=== PATIENT | male | born 1955 | race Caucasian/White ===

== ENCOUNTER 2025-04-26 10:56 | Outpatient (CLI) | payer MEDICARE, BC, SELFPAY ==
--- OUTSIDE RECORDS SUMMARY | 2025-03-06 09:00 | XMS_ITS | Encounter Summary ---
Author Organization [facility] Address [address] [place] [address] Care Team Providers Care Road Freight Conductor Name Role Phone Yelena Michael MD Primary Care Provider Reason for Visit * Reason Comments Yearly Medicare Exam Encounter Details Date Type Department Care Team (Late st Contact Info) Description 03/06/2025 9:00 AM CDT Office Visit [facility] [address] [place] [address] Natalia Lee PA [address] [place] [address] Routine general medical examination at a health care facility (Primary Dx); Prediabetes; Other hyperlipidemia; Hx of CABG; ASHD (arteriosclerotic heart disease); Essential hypertension Social History Tobacco Use Types Packs/Day Years Used Date Smoking Tobacco: Never Smokeless Tobacco: Never Alcohol Use Standard Drinks/Week Comments Yes 2 (1 standard drink = 0.6 oz pur e alcohol) Food Insecurity Answer Date Recorded Do you find you are eating l ess than you should because you can t pay for food? No 02/20/2025 Transportation Needs Answer Date Record ed Have you gone without health care because you didn t have a way to get there? Or worry about transportation for future doctor visits, metal pickling equipment operator medication, etc.? No 2024 Housing Stability Answer Date Recorded Do you worry you won t have a steady place to sleep or struggle to pay rent or mortgage? No 02/20/2025 Utility Needs Answer Date Recorded Do you have difficulty payin g for utility costs (electric, water or gas bills)? No 02/20/2025 Medication Needs Answer Date Recorded Have you skipped taking medi cation due to cost or worry you can t afford new medications? No 02/20/2025 Feeling Safe Answer Date Recorded Are you in a relationship wi th someone who hurts you emotionally and/or physically? No 02/21/2025 Sex and Gender Information Value Date Recorded Sex Assigned at Male 04/17/2023 9:26 AM PERMANENT MOLD SUPERVISOR Legal Sex Male 1:26 PM PERMANENT MOLD SUPERVISOR Gender Identity Not on file Sexual Orientation Straight 04/17/2023 9: 26 AM PERMANENT MOLD SUPERVISOR documented as of this encounter Last Filed Vital Signs Vital Sign Reading Time Taken Comments Blood Pressure 134/68 03/06/2025 8:48 AM CDT Pulse 71 03/06/2025 8:48 AM CDT Temperature 36.4 C (97.6 F) 03/06/2025 8:48 AM CDT Respiratory Rate 18 03/06/2025 8:48 AM CDT Oxygen Saturation 95% 03/06/2025 8:48 AM CDT Inhaled Oxygen Concentration - - Weight 101.8 kg (224 lb 6.4 oz) 03/06/2025 8:48 AM CDT Height 180.3 cm (5' 11 ) 03/06/2025 8:48 AM CDT Body Mass Index 31.3 03/06/2025 8:48 AM CDT documented in this encounter Progress Notes * Natalia Lee PA - 03/06/2025 8:56 AM CDT Cory Davis is a 70 y.o. male here today for his Medicare Annual Wellness Visit. MEDICARE WELLNESS VISIT HEALTH RISK ASSESSMENT Completed by and reviewed with patient/caregiver. See Annual Wellness Visit HRA Flowsheet In general, how would you rate your health?: Very Good (03/06/25851) Are you basically satisfied with your life? : Yes (03/06/25851) MEDICAL RECORD REVIEWED AND UPDATED, INCLUDING: Demographics Current providers and suppliers: Patient Care Team: Yelena Michael MD as PCP - General (Internal Medicine) Shyanne Hutton PA as PCP - Primary Care APP1 (Physician Medical Laboratory Scientist) Hove, Jasmine Kellie, ANP as PCP - Primary Care APP2 (NURSE PRACTITIONER) Natalia Lee PA as PCP - Primary Care APP3 (Physician Medical Laboratory Scientist) Past Medical and Surgical History Family History Social History Allergies CURRENT MEDICATIONS REVIEWED AND RECONCILED tamsulosin Take 1 Capsule (0.4 mg) by mouth daily. rosuvastatin Take 1 Tablet (20 mg) by mouth daily. cholecalciferol (vitamin D3) Take 25 mcg by mouth. amLODIPine Take 1 Tablet (10 mg) by mouth daily. CYANOCOBALAMIN, VITAMIN B-12, ORAL Take by mouth 1 time daily as needed. GUMMIES OXcarbazepine Take 1 Tablet (300 mg) by mouth 2 times daily. fluticasone propionate SHAKE LIQUID AND USE 2 SPRAYS IN EACH NOSTRIL DAILY AT BEDTIME azelastine use 2 sprays in each nostril twice daily coenzyme Q10 Take 10 mg by mouth daily. multivitamin Take 1 Tablet by mouth daily. nitroglycerin Place 1 Tablet (0.4 mg) under tongue every 5 minutes as needed for Chest Pain. aspirin Take 81 mg by mouth daily. In general, how often do you forget or decide not to take one or more of your medications?: Seldom (03/06/25851) EXAMINATION(MA may complete) BP 134/68 (BP Location: Left arm, Patient Position (BP): Sitting, BP Cuff Size: Large Adult) Pulse 71 Temp 97.6 ??F (36.4 ??C) (Temporal) Resp 18 Ht 5' 11 (1.803 m) Wt 101.8 kg (224 lb 6.4oz) SpO2 95% BMI 31.30 kg/m?? Visual Acuity: Hearing: Have you been told by others you turn up your TV volume too high or that you have problems hearing?: Yes (03/06/25851) FUNCTIONAL ABILITY, FRAILTY AND SAFETY Have you fallen one or more times in the past year?: No (03/06/25851) Patient denies needing help with any ADL's. Do you currently use any medical equipment, such as a cane, walker, wheelchair, or oxygen tank?: No(03/06/25851) SAFETY AND PHYSICAL ACTIVITY Do you fasten your seat belt when you are in the car?: Yes (03/06/25851) Do you feel safe at home?: Yes (03/06/25851) How many days a week do you do at least 10 - 15 minutes of some type of exercise or physical activity?: 2 - 3 days - education automatically filed to AVS (03/06/25851) RISK ASSESSMENT (QM) Depression Screen Positive: PHQ-2 score >= 3 or PHQ-9 score >= 9 PHQ-2 Total: 0 (03/06/2025 8:52 AM) PHQ-9 Total: 2 (03/06/2025 8:52 AM) DEPRESSION PLAN OF CARE His depression screen was negative. (PHQ2 <3, PHQ9 <10, [place] <11) How often do you feel angry? : Never (03/06/25851) How often do you feel lonely?: Sometimes (03/06/25851) Any changes or new problems with your mental or emotional health, such as stress or anxiety?: Yes (03/06/25851) Management options discussed: N/A Opioid Use Current Opioids: none on current medication list Cognitive Impairment Cognitive ability observed and assessed throughout the exam. Structured assessment: not indicated based on this assessment. . PREVENTIVE CARE GUIDELINES Written Screening Schedule for the next 5-10 years developed and provided to patient. Preventive Care Recommendations for AVERAGE Risk Adult Males > 65yo Measure USPSTF Recommendation PSA testing Men 55-69: individual decision based on review of potential benefits and harms. Men >70 not recommended Colon Cancer Screening Colonoscopy every 10 yrs or Fecal Occult Blood testing yearly ages 45-75 Abdominal Aortic Aneurysm Men 65 -75 who have ever smoked. Lung Cancer Screening Annual low-dose CT, adults 50 - 80 w/ >20 pack-year smoking hx who currently smoke or have quit w/in 15 yrs (*Medicare will not cover for >77 yo) Lipid Screening Identification of dyslipidemia and calculation of 10-year CVD event risk requires universal lipid screening in adults ages 40 - 75 Pre-diabetes/Diabetes Screening Adults 35-70 who are overweight or obese Hepatitis C Screening Adults 18-79 Immunizations COVID-19 Influenza Pneumococcal RSV Tdap/Td Zoster (Shingles) ADVANCE CARE PLANNING Do you have an Advance Directive (Living Will)?: Yes (03/06/25851) Primary Emergency Contact: DASHA RIBERA, Relation: Cousin Is the person(s) listed above who you would want to be your trusted decision maker? Yes RISK FACTORS AND CONDITIONS FOR WHICH INTERVENTIONS ARE RECOMMENDED AND/OR UNDERWAY Are you currently on any kind of special diet? : Yes (03/06/25851) Do you have problems with your teeth or dentures?: Yes (03/06/25851) During the past 4 weeks, would you say you have had...: Very mild pain (03/06/25851) Do you have any concerns about your sexual health?: No (03/06/25851) No new issues identified EDUCATION/COUNSELING/REFERRAL(S) None indicated Orders Placed This Encounter FOLLOW UP YEARLY MEDICARE EXAM Mr. Davis voiced understanding and agreement with the treatment plan. All questions were answered. Wjoiu-Lvurd-Symgcsv provided to patient. ACUTE AND/OR CHRONIC ISSUES REQUIRING EVALUATION AND MANAGEMENT OUTSIDE THE WELLNESS VISIT (Provider only) Chief Complaint Patient presents with Yearly Medicare Exam HPI Patient is here for his annual wellness visit. His past medical history of hyperlipidemia, prediabetes, coronary artery disease, history of CABG. In general he has been doing well He did have to go to the emergency room on 02/20/2025 after developing very odd symptoms such as feeling like he was from his body. Lab work was unremarkable. Drug screen was presumptively positive for cannabinoids. After the fact he figured out he erroneously took a THC gummy that a ex friend had put in a different package. He saw neurology last year for an episode of altered consciousness. There was concern for complex partial seizures. He is on oxcarbazepine. He does admit he does not take it exactly as prescribed buthas not had any other episodes of concern. He does have some trouble with urinary frequency especially at night. This is helped by Flomax. Still sometimes has 1 episode of nocturia Review of Systems Constitutional: Negative for malaise/fatigue. HENT: Negative for congestion. Respiratory: Negative for cough and shortness of breath. Cardiovascular: Negative for chest pain and palpitations. Gastrointestinal: Negative for constipation, diarrhea, nausea and vomiting. Genitourinary: Negative for dysuria and hematuria. Skin: Negative for rash. Neurological: Negative for dizziness and headaches. Psychiatric/Behavioral: Negative for depression. The patient is not nervous/anxious. Objective Vitals: 03/06/25847 BP: 134/68 Pulse: 71 Resp: 18 Temp: 97.6 ??F (36.4 ??C) SpO2: 95% Physical Exam Constitutional: Appearance: Normal appearance. HENT: Head: Normocephalic and atraumatic. Right Ear: Tympanic membrane normal. Left Ear: Tympanic membrane normal. Nose: Nose normal. Mouth/Throat: Mouth: Mucous membranes are moist. Pharynx: Oropharynx is clear. Eyes: Extraocular Movements: Extraocular movements intact. Conjunctiva/sclera: Conjunctivae normal. Pupils: Pupils are equal, round, and reactive to light. Neck: Vascular: No carotid bruit. Cardiovascular: Rate and Rhythm: Normal rate and regular rhythm. Pulses: Normal pulses. Heart sounds: Normal heart sounds. Pulmonary: Effort: Pulmonary effort is normal. Breath sounds: Normal breath sounds. Abdominal: General: Bowel sounds are normal. Palpations: Abdomen is soft. Musculoskeletal: General: Normal range of motion. Cervical back: Normal range of motion and neck supple. Right lower leg: No edema. Left lower leg: No edema. Skin: General: Skin is warm and dry. Neurological: General: No focal deficit present. Mental Status: He is alert and oriented to person, place, and time. Psychiatric: Mood and Affect: Mood normal. Behavior: Behavior normal. Thought Content: Thought content normal. Current Outpatient Medications Medication Instructions amLODIPine (NORVASC) 10 mg, Oral, DAILY aspirin (ECOTRIN EC) 81 mg, DAILY azelastine (ASTELIN) 137 mcg/actuation nasal spray use 2 sprays in each nostril twice daily cholecalciferol (vitamin D3) 25 mcg coenzyme Q10 10 mg, DAILY CYANOCOBALAMIN, VITAMIN B-12, ORAL DAILY PRN fluticasone propionate (FLONASE) 50 mcg/spray Taylor, Suspension nasal inhaler SHAKE LIQUID AND USE 2 SPRAYS IN EACH NOSTRIL DAILY AT BEDTIME multivitamin (DAILY-BLANCO) tablet 1 Tablet, DAILY nitroglycerin (NITROSTAT) 0.4 mg, Sublingual, EVERY 5 MINUTES PRN OXcarbazepine (TRILEPTAL) 300 mg, Oral, TWO TIMES DAILY rosuvastatin (CRESTOR) 20 mg, Oral, DAILY tamsulosin (FLOMAX) 0.4 mg, Oral, DAILY A/P ICD-10-CM ICD-9-CM 1. Routine general medical examination at [facility] facility Z00.00 V70.0 2. Prediabetes R73.03 790.29 3. Other hyperlipidemia E78.49 272.4 4. Hx of CABG Z95.1 V45.81 5. ASHD (arteriosclerotic heart disease) I25.10 414.00 6. Essential hypertension I10 401.9 Chronic medical conditions are well-controlled with current therapy. Reviewed blood work that he has had for this year. He has had CBC, CMP, TSH, hemoglobin A1c, PSA. He has not had a lipid panel but he does continue to take Crestor. We deferred doing any additional lab work for this year and he will continue his cholesterol medication He is up-to-date on colonoscopy He received his influenza vaccine this year from [facility] Follow-up annually and as needed Patient Instructions Preventive Care Recommendations for AVERAGE Risk Adult Males > 65yo Measure USPSTF Recommendation PSA testing Men 55-69: individual decision based on review of potential benefits and harms. Men >70 not recommended Colon Cancer Screening Colonoscopy every 10 yrs or Fecal Occult Blood testing yearly ages 45-75 Abdominal Aortic Aneurysm Men 65 -75 who have ever smoked. Lung Cancer Screening Annual low-dose CT, adults 50 - 80 w/ >20 pack-year smoking hx who currently smoke or have quit w/in 15 yrs (*Medicare will not cover for >77 yo) Lipid Screening Identification of dyslipidemia and calculation of 10-year CVD event risk requires universal lipid screening in adults ages 40 - 75 Pre-diabetes/Diabetes Screening Adults 35-70 who are overweight or obese Hepatitis C Screening Adults 18-79 Immunizations COVID-19 Influenza Pneumococcal RSV Tdap/Td Zoster (Shingles) KIMI Boothe Portions of this document were created through the use of [employer] lab instructor software. Effort has been made to ensure accuracy of the bun machine operator. Any obvious errors or omissions should be clarified with the author of the document. documented in this encounter Miscellaneous Notes * Patient Instructions - Adri Morton - 03/06/2025 8:56 AM CDT Preventive Care Recommendations for AVERAGE Risk Adult Males > 65yo Measure USPSTF Recommendation PSA testing Men 55-69: individual decision based on review of potential benefits and harms. Men >70 not recommended Colon Cancer Screening Colonoscopy every 10 yrs or Fecal Occult Blood testing yearly ages 45-75 Abdominal Aortic Aneurysm Men 65 -75 who have ever smoked. Lung Cancer Screening Annual low-dose CT, adults 50 - 80 w/ >20 pack-year smoking hx who currently smoke or have quit w/in 15 yrs (*Medicare will not cover for >77 yo) Lipid Screening Identification of dyslipidemia and calculation of 10-year CVD event risk requires universal lipid screening in adults ages 40 - 75 Pre-diabetes/Diabetes Screening Adults 35-70 who are overweight or obese Hepatitis C Screening Adults 18-79 Immunizations COVID-19 Influenza Pneumococcal RSV Tdap/Td Zoster (Shingles) documented in this encounter Plan of Treatment Upcoming Encounters Date Type Department Care Team (Late st Contact Info) Description 05/17/2025 8:45 AM PERMANENT MOLD SUPERVISOR Appointment [facility] [address] [place] [address] Jasmine Franco, [facility] [address] [place] [address] 08/08/2025 11:30 AM CDT Office Visit [facility] [address] [facility] [address] [facility] [address] [place] [address] Manuel Nieves MD [address] [facility] [address] [facility] [address] [place] [address] 08/29/2025 10:45 AM CDT Office Visit [facility] [place] [address] [place] [address] Diane Ramírez MD [address] [place] [address] 03/06/2026 9:00 AM CDT Office Visit [facility] [address] [facility] [address] [place] [address] Yelena Michael MD [address] [place] [address] documented as of this encounter Visit Diagnoses Diagnosis Routine general medical examination at a health care facility- Primary Prediabetes Other abnormal glucose Other hyperlipidemia Hx of CABG Postsurgical aortocoronary bypass status ASHD (arteriosclerotic heart disease) Coronary atherosclerosis of unspecified type of vessel, inaja or graft Essential hypertension Unspecified essential hypertension documented in this encounter Care Teams Road Freight Conductor Relationship Specialty Start Date End Date Yelena Michael MD PCP - General Internal Medicine 03/29/22 documented as of this encounter
[2025-04-26 14:32] LABS: Coronavirus 19, PCR Not Detected (NotDetected); Influenza A, PCR Not Detected (NotDetected); Influenza B, PCR Not Detected (NotDetected)
--- OUTSIDE RECORDS SUMMARY | 2025-04-27 09:51 | XMS_ITS | Clinical Summary ---
Author Organization [facility] Address [address] [facility] [address] [place] [address] Phone Care Team Providers Care Media Strategist Name Role Phone Janak Roland Primary Care Provide r Allergies Active Allergy Reactions Criticality Noted Date Comments Ketorolac Other (See Comments) 10/28/2011 Internal bleeding Medications pediatric multivitamins Oral Chew Take 1 Tab by mouth daily. Active amLODIPine (NORVASC) 5 mg tablet Take 1 Tablet (5 mg) by mouth daily. 30 Tablet 11 5 Active aspirin (ECOTRIN EC) 81 mg Tablet, Delayed Release (E.C.) Take 81 mg by mouth daily. Active atorvastatin (LIPITOR) 10 mg tablet Take 10 mg by mouth daily. Active Active Problems Problem Noted Date Diagnosed Date Fever 12/04/2014 Fatigue 12/04/2014 Neutropenia 12/04/2014 Monocytosis 12/04/2014 Pyrexia Immunizations Immunization Administration Dates Next Due (ADACEL/BOOSTRIX)(10 YR UP) TDAP VACCINE, 0.5ML, IM 10/28/2011 Family History Medical History Relation Name Comments Diabetes Father Heart Disease Father Diabetes Mother Heart Disease Mother Relation Name Status Comments Father Mother Social History Tobacco Use Types Packs/Day Years Used Date Smoking Tobacco: Never Smokeless Tobacco: Never Alcohol Use Standard Drinks/Week Comments Yes 1.7 (1 standard drink = 0.6 oz p ure alcohol) monthly Sex and Gender Information Value Date Recorded Sex Assigned at Not on file Legal Sex Male 1:27 PM ERP IMPLEMENTATION CONSULTANT Gender Identity Not on file Sexual Orientation Not on file Last Filed Vital Signs Vital Sign Reading Time Taken Comments Blood Pressure 131/75 04/28/2019 7:22 PM ERP IMPLEMENTATION CONSULTANT Pulse 73 03/19/2015 2:46 PM ERP IMPLEMENTATION CONSULTANT Temperature 36.7 C (98 F) 04/28/2019 7:22 PM ERP IMPLEMENTATION CONSULTANT Respiratory Rate 16 04/28/2019 7:22 PM ERP IMPLEMENTATION CONSULTANT Oxygen Saturation 95% 04/28/2019 7:22 PM ERP IMPLEMENTATION CONSULTANT Inhaled Oxygen Concentration - - Weight 112.9 kg (248 lb 12.8 oz) 04/28/2019 3:18 PM ERP IMPLEMENTATION CONSULTANT Height 180.3 cm (5' 11 ) 04/28/2019 3:18 PM ERP IMPLEMENTATION CONSULTANT Body Mass Index 34.7 04/28/2019 3:18 PM ERP IMPLEMENTATION CONSULTANT Plan of Treatment Health Maintenance Due Date Last Done Comments COLORECTAL SCREENING 01/06/2000 Colorectal Cancer Screening 01/06/2000 FIT-DNA Q 3 years 01/06/2000 FIT/FOBT Q 1 year 01/06/2000 Flex Sig/CT Colonography Q 5 years 01/06/2000 PNEUMOCOCCAL VACCINE 50+ YEARS (1 of 1 - PCV) 01/06/20 05 ZOSTER VACCINE (1 of 2) 2005 DTAP/TDAP/TD VACCINES (2 - Td or Tdap) 10/27/2021 INFLUENZA VACCINE (#1) 2024 RSV VACCINE (60+ or ) (1 - 1-dose 75+ series) 2030 Insurance [employer] CROSS AND BLUE [employer] Member Subscriber Plan / Payer (Ef fective 2011-Present) Name:Stan Davis Relation to Subscriber:Self Name:Stan Davis Payer ID:Not on file Group ID:[id number] Type:[employer] Address: [facility] [id number] [place] [id number] Advance Directives For more information, please contact: [phone] * Full Code (Latest Code Status on File) Date Activated Date Inactivated Comments 12/04/2014 1:39 PM 12/07/2014 4:54 PM Care Teams Media Strategist Relationship Specialty Start Date End Date RolandJanak bernabe DO [address] [id number] PCP - General Internal Medicine 04/28/19
--- OUTSIDE RECORDS SUMMARY | 2025-04-27 09:51 | XMS_ITS | Encounter Summary ---
Author Organization [facility] Address [address] [place] [address] Care Team Providers Care Wash Rack Operator Name Role Phone Yelena Michael MD Primary Care Provider Encounter Details Date Type Department Care Team (Late st Contact Info) Description 04/16/2025 External Device Data STL ABSTRACTION Provider, Abstract NO ADDRESS ON FILE Social History Tobacco Use Types Packs/Day Years [...] worry about transportation for future doctor visits, flower picker medication, etc.? No 2024 Housing Stability Answer [...] Sex Assigned at Male 04/17/2023 9:26 AM POLISHING WHEEL REPAIRER Legal Sex Male 1:26 PM POLISHING WHEEL REPAIRER Gender Identity Not on file Sexual Orientation Straight 04/17/2023 9: 26 AM POLISHING WHEEL REPAIRER documented as of this encounter Plan of Treatment Upcoming Encounters Date Type Department Care Team (Late st Contact Info) Description 05/17/2025 8:45 AM POLISHING WHEEL REPAIRER Appointment [facility] [address] [place] [address] Jasmine Franco, [facility] [address] [place] [address] 08/08/2025 11:30 AM CDT Office Visit [facility] [address] [place] [address] Manuel Nieves MD [address] [place] [address] 08/29/2025 10:45 AM CDT Office Visit [facility] [place] [address] [place] [address] Diane Ramírez MD [address] [place] [address] 03/06/2026 9:00 AM CDT Office Visit [facility] [address] [place] [address] Yelena Michael MD [address] [place] [address] documented as of this encounter Visit Diagnoses Not on filedocumented in this encounter Care Teams Wash Rack Operator Relationship Specialty Start Date End Date Yelena Michael MD PCP - General Internal Medicine 03/29/22 documented as of this encounter
--- OUTSIDE RECORDS SUMMARY | 2025-04-27 09:52 | XMS_ITS | Encounter Summary ---
Author Organization [facility] Address [address] [place] [address] Care Team Providers Care Oxygen Tank Filler Name Role Phone Yelena Michael MD Primary Care Provider Encounter Details Date Type Department Care Team (Late st Contact Info) Description 03/19/2025 External Device Data STL ABSTRACTION Provider, Abstract [...] worry about transportation for future doctor visits, greens picker medication, etc.? No 2024 Housing Stability [...] Sex Assigned at Male 04/17/2023 9:26 AM MITER SAW OPERATOR Legal Sex Male 1:26 PM MITER SAW OPERATOR Gender Identity Not on file Sexual Orientation Straight 04/17/2023 9: 26 AM MITER SAW OPERATOR documented as of this encounter Plan of Treatment Upcoming Encounters Date Type Department Care Team (Late st Contact Info) Description 05/17/2025 8:45 AM MITER SAW OPERATOR Appointment [facility] [address] [place] [address] Jasmine Franco, PR[facility] [address] [place] [address] 08/08/2025 11:30 AM CDT Office Visit [facility] [address] [place] [address] Manuel Nieves MD [address] [place] [address] 08/29/2025 10:45 AM CDT Office Visit [facility] [place] [address] [place] [address] Diane Ramírez MD [address] [place] [address] 03/06/2026 9:00 AM CDT Office Visit [facility] [address] [place] [address] Yelena Michael MD [address] [place] [address] documented as of this encounter Visit Diagnoses Not on filedocumented in this encounter Care Teams Oxygen Tank Filler Relationship Specialty Start Date End Date Yelena Michael MD PCP - General Internal Medicine 03/29/22 documented as of this encounter
--- OUTSIDE RECORDS SUMMARY | 2025-04-27 09:52 | XMS_ITS | Encounter Summary ---
Author Organization [facility] Address [address] [place] [address] Care Team Providers Care Sales And Service Change Leader Name Role Phone Yelena Michael MD Primary Care Provider Encounter Details Date Type Department Care Team (Late st Contact Info) Description 02/27/2025 External Device Data [facility] ABSTRACTION Provider, Abstract [...] worry about transportation for future doctor visits, pick remover medication, etc.? No 2024 Housing Stability Answer [...] Sex Assigned at Male 04/17/2023 9:26 AM ECONOMIC DEVELOPMENT SPECIALIST Legal Sex Male 1:26 PM ECONOMIC DEVELOPMENT SPECIALIST Gender Identity Not on file Sexual Orientation Straight 04/17/2023 9: 26 AM ECONOMIC DEVELOPMENT SPECIALIST documented as of this encounter Plan of Treatment Upcoming Encounters Date Type Department Care Team (Late st Contact Info) Description 05/17/2025 8:45 AM ECONOMIC DEVELOPMENT SPECIALIST Appointment [facility] [address] [place] [address] Jasmine Franco, PRICE [address] [place] [address] 08/08/2025 11:30 AM CDT Office Visit [facility] Cardiology Heart [facility] [address] [place] [address] Manuel Nieves MD [address] [place] [address] 08/29/2025 10:45 AM CDT Office Visit [facility] Neurology - [place] [address] [place] [address] Diane Ramírez MD [address] [place] [address] 03/06/2026 9:00 AM CDT Office Visit [facility] Internal Medicine[facility] [address] [place] [address] Yelena Michael MD [address] [place] [address] documented as of this encounter Visit Diagnoses Not on filedocumented in this encounter Care Teams Sales And Service Change Leader Relationship Specialty Start Date End Date Yelena Michael MD PCP - General Internal Medicine 03/29/22 documented as of this encounter
--- OUTSIDE RECORDS SUMMARY | 2025-04-27 09:52 | XMS_ITS | Clinical Summary ---
Author Organization [facility] Address [address] [place]: Epic Prelude ADT VIRIDIANA SCHAFER [phone] Care Team Providers Care Coin Rolling Machine Operator Name Role Phone Yelena Berger MD Primary Care Provider Allergies Active Allergy Reactions Criticality Noted Date Comments Ketorolac Other (See Comments) 10/28/2011 Internal bleeding Medications aspirin (ECOTRIN EC) 81 mg Tablet, Delayed Release (E.C.) Take 81 mg by mouth daily. 04/28/2019 Active multivitamin (DAILY-BLANCO) tablet Take 1 Tablet by mouth daily. Active nitroglycerin (NITROSTAT) 0.4 mg Tablet, Sublingual Place 1 Tablet (0.4 mg) under tongue every 5 minutes as needed for Chest Pain. 30 Tablet 1 02/10/2023 Active coenzyme Q10 Capsule Take 10 mg by mouth daily. Active fluticasone propionate (FLONASE) 50 mcg/spray [place], Suspension nasal inhaler SHAKE LIQUID AND USE 2 SPRAYS IN EACH NOSTRIL DAILY AT BEDTIME 48 Gram 3 08/29/2023 Active azelastine (ASTELIN) 137 mcg/actuation nasal spray use 2 sprays in each nostril twice daily 90 mL 3 08/29/2023 Active OXcarbazepine (TrileptaL) 300 mg tablet Take 1 Tablet (300 mg) by mouth 2 times daily. 180 Tablet 3 02/27/2024 Active CYANOCOBALAMIN, VITAMIN B-12, ORAL Take by mouth 1 time daily as needed. GUMMIES Active amLODIPine (NORVASC) 10 mg tablet Take 1 Tablet (10 mg) by mouth daily. 100 Tablet 3 07/31/2024 Active cholecalciferol , vitamin D3, 1,000 unit Take 25 mcg by mouth. 07/30/2024 Active rosuvastatin (CRESTOR) 20 mg tablet Take 1 Tablet (20 mg) by mouth daily. 90 Tablet 2 01/03/2025 Active tamsulosin (FLOMAX) 0.4 mg capsuleIndicati ons:Urinary frequency Take 1 Capsule (0.4 mg) by mouth daily. 90 Capsule 02/12/2025 Active Active Problems Problem Noted Date Diagnosed Date Prediabetes 03/06/2025 Essential hypertension 03/06/2025 Episode of altered consciousness 11/08/2023 ASHD (arteriosclerotic heart disease) 06/28/2022 Hx of CABG 06/28/2022 Other hyperlipidemia 06/28/2022 Fatigue 12/04/2014 Monocytosis 12/04/2014 Resolved Problems Problem Noted Date Diagnosed Date Resolved Date Fever 12/04/2014 02/10/2023 Neutropenia 12/04/2014 03/29/2022 Pyrexia 02/10/2023 Encounters Date Type Department Care Team Description 04/16/2025 External Device Data [facility] ABSTRACTION Provider, Abstract 04/16/2025 External Device Data [facility] ABSTRACTION Provider, Abstract 03/19/2025 External Device Data [facility]STRACTION Provider, Abstract 03/19/2025 External Device Data [facility]STRACTION Provider, Abstract 03/19/2025 External Device Data [facility] ABSTRACTION Provider, Abstract 03/06/2025 9:00 AM CDT Office Visit [facility] ([facility] Internal Medicine[address] [place] [phone] Natalia Lee PA Routine general medical examination at a health care facility (Primary Dx); Prediabetes; Other hyperlipidemia; Hx of CABG; ASHD (arteriosclerotic heart disease); Essential hypertension 02/27/2025 External Device Data [facility] ABSTRACTION Provider, Abstract 02/27/2025 External Device Data [facility] ABSTRACTION Provider, Abstract 02/26/2025 External Device Data [facility] ABSTRACTION Provider, Abstract 02/21/2025 12:50 AM CDT - 02/21/2025 2:02 AM CDT Emergency [facility] Emergency Department [address] [place] [phone] Lukas, Joao J, DO Generalized muscle weakness (Primary Dx) Discharge Disposition: Home or Self Care 02/20/2025 Travel 02/12/2025 [facility] Internal Medicine[place] [address] [place] [address] Jasmine Franco, SOCIOLOGY RESEARCH ASSISTANT Urinary frequency from Last 3 Months Immunizations Immunization Administration Dates Next Due (ADACEL/BOOSTRIX)(10 YR UP) TDAP VACCINE, 0.5ML, IM 05/15/2020,04/15/2020,10/11/2016,10/27 (M-M-R II/PRIORIX)(12 MO UP) MEASLES, MUMPS AND RUBELLA VIRUS VACCINE, 0.5 ML IM/SUBCUT 06/02/2020 (PFIZER NADIR)(12 YR UP PRIMA RY SERIES) COVID-19 VACCINE - EMERGENCY USE AUTHORIZATION, MRNA, NADIR(PF) 30 MCG/0.3 ML IM SUSP 08/13/2021 (PREVNAR 20)(6 WKS UP) PNEUM OCOCCAL CONJUGATE VACCINE 20-VALENT (PCV20), POLYSACCHARIDE COC558 CONJUGATE, ADJUVANT 0.5 ML (PF) IM 03/29/2022 (SHINGRIX)(50 YRS UP) ZOSTER VACCINE RECOMBINANT, 0.5 ML, IM 07/01/2020 (SPIKEVAX) (12 YRS UP PRIMAR Y SERIES) COVID-19 VACCINE - MRNA-1273(PF) 100 MCG/0.5 ML IM SUSP 12/25/2020,07/16/2020,06/13/2020 INFLUENZA VACCINE HIGH DOSE QUADRIVALENT 65 YR UP PF IM 02/14/2025,11/29/2023,02/10/2023 Influenza Seasonal Unspecifi ed Formulation IM 12/08/2023,02/23/2022,01/23/2021,04/15,04/24/2019 Influenza Vaccine High Dose 65+ Yrs IM Influenza, Unspecified Formulation 01/08/2024 PREVNAR (PCV13) pneumococcal 13-valent conjugate Vaccine 05/13/2020 Family History Medical History Relation Name Comments Diabetes Father Diaz Rohan Wayne Heart Attack Father Diaz Rohan Wayne Heart Disease Father Diaz Rohan Wayne Diabetes Maternal Grandfather Raffi Tom ith Heart Disease Maternal Grandfather Raffi roque Breast Cancer Maternal Grandmother Dasha Aguilera Diabetes Mother Laura Wayne Heart Disease Mother Laura Wayne Diabetes Paternal Grandfather Rohan Wayne Heart Disease Paternal Grandfather Rohan Wayne Cancer Paternal Grandmother Lecter Alta Rosas rs Relation Name Status Comments Father Diaz Wayne Maternal Grandfather Raffi Potterth Maternal Grandmother Dasha Aguilera Mother Laura Wayne Paternal Grandfather Rohan Wayne Paternal Grandmother Lecter Alta Wayne Social History Tobacco Use Types Packs/Day Years Used Date Smoking Tobacco: Never Smokeless Tobacco: Never Tobacco Cessation:Counseling Given: Not Answered Alcohol Use Standard Drinks/Week Comments Yes 2 [...] worry about transportation for future doctor visits, oyster picker medication, etc.? No 2024 Housing Stability [...] Sex Assigned at Male 04/17/2023 9:26 AM SHIPPING CLERK PACKING Legal Sex Male 1:26 PM SHIPPING CLERK PACKING Gender Identity Not on file Sexual Orientation Straight 04/17/2023 9: 26 AM SHIPPING CLERK PACKING Last Filed Vital Signs Vital Sign Reading [...] Mass Index 31.3 03/06/2025 8:48 AM CDT Plan of Treatment Upcoming Encounters Date Type Department Care Team (Late st Contact Info) Description 05/17/2025 8:45 AM SHIPPING CLERK PACKING Appointment [facility] [address] [place] [address] Jasmine Frnaco, PRICE [address] [place] [address] 08/08/2025 11:30 AM CDT Office Visit [facility] [address] [place] [address] Manuel Nieves MD [address] [place] [address] 08/29/2025 10:45 AM CDT Office Visit [facility] Neurology - [place] [address] [place] [address] Diane Ramírez MD [address] [place] [address] 03/06/2026 9:00 AM CDT Office Visit [facility] Internal Medicine[place] [address] [place] [address] Yelena Berger MD [address] [place] [phone] Health Maintenance Due Date Last Done Comments FIT-DNA Q 3 years 01/06/2000 Flex Sig/CT Colonography Q 5 years 01/06/2000 RSV VACCINE (60+ or ) (1 - Risk 50-74 years 1-dose series) 2005 FIT/FOBT Q 1 year 02/17/2024 02/16/2023 Traditional Medicare (ACO) A nnual Wellness Visit 03/07/2026 03/06/2025, 01/16/2024 COLORECTAL SCREENING 04/30/2027 04/30/2024, 04/30/20 Colorectal Cancer Screening 04/30/2027 Pre-Diabetes and Diabetes Screening 01/24/2028 01/23/2025, 06/01/2024, 01/24/2024 DTAP/TDAP/TD VACCINES (5 - T d or Tdap) 05/15/2030 05/15/2020, 04/15/2020, 10/11/2016, Additional history exists ZOSTER VACCINE Completed 04/29/2021 (Prev iously completed), 07/01/2020, 07/01/2020 (Previously completed) COVID-19 Vaccine Discontinued 08/13/2021, , 07/16/2020, Additional history exists PNEUMOCOCCAL VACCINE 50+ YEARS Completed 03/29/2022 , 05/13/2020 INFLUENZA VACCINE Completed 02/14/2025, , 11/29/2023, Additional history exists Medical Devices Implanted Type Area Circuit Board Repair Technician Device Identifier Shelf Expiration Date Model / Serial / Lot Hemostatic Surg Powder [id number] - Sn/A Implanted:Qty: 1 on 05/24/2024 by Elroy Reece MD at [facility] Hemostatic N/A: Nose [employer] 07/06/2025 [id number] / N/A / [id number] Procedures Procedure Name Priority Date/Time Associated Diagnosis Comments TROPONIN 6 HR, 5TH GEN Timed Study 02/21/2025 1:01 AM CDT EXTRA TUBE (URINE [place]RO[place]) Stat 02/20/2025 8:26 PM CDT DRUG SCREEN, URINE Stat 02/20/2025 8: 26 PM CDT URINALYSIS W/REFLEX MICROSCOPIC Stat 02/20/2025 8:26 PM CDT TROPONIN 2 HR, 5TH GEN Timed Study 02/20/2025 8:22 PM CDT XR CHEST PA OR AP 1 VW Stat 02/20/2025 7:24 PM CDT TROPONIN BASELINE, 5TH GEN Stat 02/20/2025 6:10 PM CDT MAGNESIUM LEVEL Stat 02/20/2025 6:10 PM CDT TSH REFLEXIVE Stat 02/20/2025 6:10 PM CDT COMPREHENSIVE METABOLIC PANEL Stat 02/20/2025 6:10 PM CDT CBC WITH DIFFERENTIAL Stat 02/20/2025 6:10 PM CDT EKG 12-LEAD Stat 02/20/2025 5:56 PM CDT HEMOGLOBIN A1C Routine 01/23/2025 10:03 AM CDT Diabetes mellitus screening COLONOSCOPY REPORT 04/30/2024 10 :17 AM SHIPPING CLERK PACKING OCCULT BLOOD IMMUNOASSAY, COLORECTAL SCREEN Routine 02/16/2023 12:00 AM CDT Screening for colon cancer from Last 3 Months or Most Recently Relevant to Health Maintenance Results * TROPONIN 6 HR, 5TH GEN (02/21/2025 1:01 AM CDT) TROPONIN T, 6 HR 5TH GEN 10 <=15 ng/L 02/21/2025 1:[address] [facility] [employer] [facility] DELTA 6HR TROPONIN T -3 See Interp. 02/21/2025 1:[address] [facility] [employer] [facility] Blood Venipuncture / Unknown 02/21/2025 1:01 AM CDT 02/21/2025 1:04 AM CDT Narrative [facility] - 02/21/2025 1:35 AM CDT Troponin Detectable but normal range. Delta indeterminate. Delay in collection of timed specimen beyond recommended collection interval. Results must be interpreted in clinical context. Brian Cruz HOUSING DEVELOPMENT SPECIALIST CHEMISTRY ORDERABLES Final R esult Performing Organization Address City/[facility]/ZIP Co de Phone Number [facility] CLIA # [id number] [address] [address] [place] [address] * EXTRA TUBE (URINE MONROY) (02/20/2025 8:26 PM CDT) Urine URINE SPECIMEN OBTAINED BY CLEAN CATCH PROCEDURE / Unknown Collection / Unknown 02/20/2025 8:26 PM CDT 02/20/2025 8:33 PM CDT Brian Cruz HOUSING DEVELOPMENT SPECIALIST URINE ORDERABLES Final Resul t Performing Organization Address [facility] de Phone Number [facility] CLIA # [id number] [address] [address] * (ABNORMAL) DRUG SCREEN, URINE (02/20/2025 8:26 PM CDT) AMPHETAMINE QUAL, URINE Negative Negative 02/20/2025 9:21 PM CDT [facility] BARBITURATE QUAL, URINE Negative Negative 02/20/2025 9:21 PM CDT [facility] BENZODIAZEPINE QUAL, URINE Negative Negative 02/20/2025 9:21 PM CDT [facility] COCAINE QUAL URINE Negative Negative 02/20/2025 9:21 PM CDT [facility] OPIATE QUAL, URINE Negative Negative 02/20/2025 9:21 PM CDT [facility] CANNABINOIDS QUAL, URINE Presumptive Positive(A) Negative 02/20/2025 9:21 PM CDT [facility] OXYCODONE QUAL, URINE Negative Negative 02/20/2025 9:21 PM CDT [facility] METHADONE QUAL, URINE Negative Negative 02/20/2025 9:21 PM CDT [facility] FENTANYL QUAL, URINE Negative Negative 02/20/2025 9:21 PM CDT [facility] CREATININE, URINE 266.1 40.0 - 278.0 mg/dL 02/20/2025 9:21 PM T [facility] Comment:Reference Range vari es with fluid intake and diet. Urine URINE SPECIMEN OBTAINED BY CLEAN CATCH PROCEDURE / Unknown Collection / Unknown 02/20/2025 8:26 PM CDT 02/20/2025 8:33 PM CDT Narrative [facility] - 02/20/2025 9:21 PM CDT This test is a qualitative screen. The presumptive positive results should not be used for legal purposes. If confirmation of results is desired, the lab must be contacted without delay. Drug Ref. Range Screening Threshold Amphetamines Negative 500 ng/mL Barbiturates Negative 200 ng/mL Benzodiazepines Negative 100 ng/mL Cannabinoids Negative 50 ng/mL Cocaine Metabolite Negative 300 ng/mL Opiate Negative 300 ng/mL Oxycodone Negative 100 ng/mL Methadone Negative 300 ng/mL Fentanyl Negative 5 ng/mL us Clair Colon THREAD MARKER URINE ORDERABLES Final Result [id number] [address] [place] [id number] * (ABNORMAL) URINALYSIS WITH REFLEX MICROSCOPIC (02/20/2025 8:26 PM CDT) COLOR UA Yellow Pale to Dark Yellow 02/20/2025 8:53 PM T [facility] CLARITY UA Clear Clear 02/20/2025 8:53 PM T [facility] SPECIFIC GRAVITY UA 1.037(H) 1.003 - 1.035 02/20/2025 8:53 PM CDT [facility] PH UA 5.5 5.0 - 8.0 02/20/2025 8:53 PM CDT [facility] LEUKOCYTE ESTERASE UA Trace(A) Negative 02/20/2025 8:53 PM CDT [facility] NITRITE UA Negative Negative 02/20/2025 8:53 PM CDT [facility] PROTEIN UA Trace(A) Negative 02/20/2025 8:53 PM CDT [facility] GLUCOSE UA Negative Negative 02/20/2025 8:53 PM CDT [facility] KETONES UA Trace(A) Negative 02/20/2025 8:53 PM CDT [facility] UROBILINOGEN UA 4.0(A) <2.0 mg/dL 8:53 PM CDT [facility] BILIRUBIN UA Negative Negative 02/20/2025 8:53 PM CDT [facility] BLOOD UA Negative Negative 02/20/2025 8:53 PM CDT [facility] WBC UA 6-10(A) 0 - 2 /hpf 02/20/2025 8:53 PM CDT [facility] RBC UA 0-2 0 - 2 /hpf 02/20/2025 8:53 PM CDT [facility] BACTERIA UA 1+(A) Negative /hpf 02/20/2025 8:53 PM CDT [facility] Urine URINE SPECIMEN OBTAINED BY CLEAN CATCH PROCEDURE / Unknown Collection / Unknown 02/20/2025 8:26 PM CDT 02/20/2025 8:33 PM CDT us Brian Cruz HOUSING DEVELOPMENT SPECIALIST URINE ORDERABLES Final Resul t [facility] CLIA # [id number] [facility], 1928[id number] [address] [place] [address] * TROPONIN 2 HR, 5TH GEN (02/20/2025 8:22 PM CDT) TROPONIN T, 2 HR 5TH GEN 12 <=15 ng/L 02/20/2025 9:[address] [facility] DELTA 2HR TROPONIN T -1 See Interp. 02/20/2025 9:02 PM CDT [facility] Blood Venipuncture / Unknown 02/20/2025 8:22 PM CDT 02/20/2025 8:[address] [facility] - 02/20/2025 9:02 PM CDT Troponin Detectable but normal range. Delta not changing. us Brian Cruz HOUSING DEVELOPMENT SPECIALIST CHEMISTRY ORDERABLES Final R esult [facility] CLIA # [id number] [facility], [facility] [address] [place] [address] * XR CHEST PA OR AP 1 VW (02/20/2025 7:24 PM CDT) Anatomical Region Laterality Modality Chest Computed Radiogr aphy 02/20/2025 7:24 PM CDT Impressions 02/21/2025 3:26 AM CDT IMPRESSION: No evidence of acute cardiopulmonary disease. Narrative 02/21/2025 3:26 AM CDT EXAM: XR CHEST PA OR AP 1 VW DATE/TIME OF EXAM: 02/20/2025 7:24 PM REASON FOR EXAM: Other - Please see comments DIAGNOSIS: See Reason for Exam COMPARISON: Chest x-ray 04/28/2019 FINDINGS: - Lines/tubes: None. Intact median sternotomy wires. - Cardiomediastinal: Stable mild cardiomegaly. - Lungs/pleura: Radiographically the lungs appear clear. Hemidiaphragms are well visualized; no appreciable pleural effusion or pneumothorax. - Bones and soft tissues: No acute abnormalities. - Additional comments: None. Procedure Note Maurice Ferro MD - 02/21/2025 EXAM: XR CHEST PA OR AP 1 VW DATE/TIME OF EXAM: 02/20/2025 7:24 PM REASON FOR EXAM: Other - Please see comments DIAGNOSIS: See Reason for Exam COMPARISON: Chest x-ray 04/28/2019 FINDINGS: - Lines/tubes: None. Intact median sternotomy wires. - Cardiomediastinal: Stable mild cardiomegaly. - Lungs/pleura: Radiographically the lungs appear clear. Hemidiaphragms are well visualized; no appreciable pleural effusion or pneumothorax. - Bones and soft tissues: No acute abnormalities. - Additional comments: None. IMPRESSION: No evidence of acute cardiopulmonary disease. Brian Cruz APRN DIAGNOSTIC IMAGING ORDERABLE S Final Result * TROPONIN BASELINE, 5TH GEN (02/20/2025 6:10 PM CDT) Pathologist [facility] TROPONIN T, BASELINE 5TH GEN 13 <=15 ng/L 02/20/2025 6:[address] [facility] [employer] [facility] Blood Venipuncture / Unknown 02/20/2025 6:10 PM CDT 02/20/2025 6:[address] [facility] - 02/20/2025 6:52 PM CDT Troponin Detectable but normal range. Brian Cruz APRN CHEMISTRY ORDERABLES Final R esult Performing Organization Address City/[facility]/ZIP Co de Phone Number [facility] [employer] [facility] CLIA # [id number] [address] [place] [address] [place] [address] * TSH REFLEXIVE (02/20/2025 6:10 PM CDT) Pathologist [facility] TSH 0.88 0.27 - 4.20 uIU/mL 02/20/2025 6:[address] [facility] [employer] [facility] Blood Venipuncture / Unknown 02/20/2025 6:10 PM CDT 02/20/2025 6:15 PM CDT Brian Cruz APRN CHEMISTRY ORDERABLES Final R esult [facility] [employer] [facility] CLIA # [id number] [address] [address] [place] [address] * (ABNORMAL) CBC WITH DIFFERENTIAL (02/20/2025 6:10 PM CDT) [facility] WBC 7.7 4.8 - 10.8 K/uL 02/20/2025 6:23 PM CDT [facility] RBC 5.22 4.60 - 6.20 M/uL 02/20/2025 6:23 PM CDT [facility] HEMOGLOBIN 14.5 14.0 - 18.0 g/dL 02/20/2025 6:23 PM CDT [facility] HEMATOCRIT 46.1 41.0 - 53.0 % 02/20/2025 6:23 PM CDT [facility] MCV 88.3 84.0 - 103.0 fL 02/20/2025 6:23 PM CDT [facility] MCH 27.8 27.0 - 34.0 pg 02/20/2025 6:23 PM CDT [facility] MCHC 31.5 30.0 - 35.0 g/dL 02/20/2025 6:23 PM CDT [facility] PLATELETS 314 140 - 440 K/uL 02/20/2025 6:23 PM CDT [facility] MPV 11.4 8.9 - 12.8 fL 02/20/2025 6:23 PM CDT [facility] RDW 14.6(H) 11.0 - 14.5 % 02/20/2025 6:23 PM CDT [facility] RDW-STDEV 47.4 37.0 - 54.0 fL 02/20/2025 6:23 PM CDT [facility] NEUTROPHILS 65 42 - 75 % 02/20/2025 6:23 PM CDT [facility] LYMPHOCYTES 21(L) 24 - 44 % 02/20/2025 6:23 PM CDT [facility] MONOCYTES 11(H) 2 - 10 % 02/20/2025 6:23 PM CDT [facility] EOSINOPHILS 1 0 - 7 % 02/20/2025 6:23 PM CDT [facility] BASOPHILS 1 0 - 1 % 02/20/2025 6:23 PM CDT [facility] IMMATURE GRANULOCYTES 0 0 - 2 % 02/20/2025 6:23 PM CDT [facility] NEUTROPHIL ABSOLUTE 5.03 2.00 - 8.00 K/uL 02/20/2025 6:23 PM CDT [facility] LYMPHOCYTE ABSOLUTE 1.65 1.20 - 4.00 K/uL 02/20/2025 6:23 PM CDT [facility] MONOCYTE ABSOLUTE 0.86(H) 0.10 - 0.60 K/uL 02/20/2025 6:23 PM CDT [facility] EOSINOPHIL ABSOLUTE 0.11 0.00 - 0.70 K/uL 02/20/2025 6:23 PM CDT [facility] BASOPHILS ABSOLUTE 0.06 0.00 - 0.20 K/uL 02/20/2025 6:23 PM CDT [facility] IMMATURE GRANULOCYTES ABSOLUTE 0.02 0.00 - 0.10 K/uL 02/20/2025 6:23 PM CDT [facility] SMEAR REVIEWED: NA - Not Applicable 02/20/2025 6:23 PM T [facility] Blood Venipuncture / Unknown 02/20/2025 6:10 PM CDT 02/20/2025 6:19 PM CDT Asa Miguel Cruz HOUSING DEVELOPMENT SPECIALIST HEMATOLOGY ORDERABLES Final Result [facility] CLIA # [id number] [address] [place] [address] [place], [place] [id number] * MAGNESIUM LEVEL (02/20/2025 6:10 PM CDT) [facility] MAGNESIUM 2.2 1.6 - 2.4 mg/dL 02/20/2025 7:08 PM CDT [facility] Blood Venipuncture / Unknown 02/20/2025 6:10 PM CDT 02/20/2025 6:19 PM CDT Brian Cruz HOUSING DEVELOPMENT SPECIALIST CHEMISTRY ORDERABLES Final R esult [facility] CLIA # [id number] [address] [place] [address] [place] [address] * (ABNORMAL) COMPREHENSIVE METABOLIC PANEL (02/20/2025 6:10 PM CDT) SODIUM 142 136 - 145 mmol/L 02/20/2025 7:08 PM CDT [facility] POTASSIUM 4.2 3.5 - 5.1 mmol/L 02/20/2025 7:08 PM T [facility] CHLORIDE 107 98 - 107 mmol/L 02/20/2025 7:08 PM T [facility] CO2 25 22 - 29 mmol/L 02/20/2025 7:08 PM T [facility] CALCIUM 8.6(L) 8.8 - 10.2 mg/dL 02/20/2025 7:08 PM T [facility] BUN 19 8 - 23 mg/dL 02/20/2025 7:08 PM T [facility] CREATININE 1.05 0.67 - 1.17 mg/dL 02/20/2025 7:08 PM T [facility] Comment:The GFR result is no t clinically significant on patients <18 or >70 years of age. GLUCOSE 183(H) 74 - 99 mg/dL 02/20/2025 7:08 PM CDT [facility] TOTAL PROTEIN 6.8 6.4 - 8.3 g/dL 02/20/2025 7:08 PM CDT [facility] ALBUMIN 4.2 3.5 - 5.2 g/dL 02/20/2025 7:08 PM T [facility] BILIRUBIN TOTAL 0.4 0.0 - 1.0 mg/dL 02/20/2025 7:08 PM CDT [facility] ALKALINE PHOSPHATASE 122 40 - 129 U/L 02/20/2025 7:08 PM CDT [facility] AST 32 10 - 50 U/L 02/20/2025 7:08 PM CDT [facility] Comment:Hemolysis present. R esult may be falsely elevated. ALT 30 <=50 U/L 02/20/2025 7:08 PM CDT [facility] GFR >60 mL/min/1.7 3 sq meter 02/20/2025 7:08 PM CDT [facility] Comment:eGFR calculated with 2020 CKD-EPI equation. Vegetarian diet, extremely high or low muscle mass, and may affect results. Cystatin C with Glomerular Filtration Rate is a suitable alternative for these patients. ANION GAP 10 9 - 20 mmol/L 02/20/2025 7:08 PM CDT [facility] Blood Venipuncture / Unknown 02/20/2025 6:10 PM CDT 02/20/2025 6:19 PM CDT Brian Cruz HOUSING DEVELOPMENT SPECIALIST CHEMISTRY ORDERABLES Final R esult [facility] CLIA # [id number] [address] [address] * EKG 12-LEAD (02/20/2025 5:56 PM CDT) 02/20/2025 5:56 PM CDT Narrative INTERFACE SYSTEM - 02/21/2025 3:55 PM CDT [address] [address] Test Date: 2025-02-20 Pat Name: BLACK WAYNE Department: 11 Room: Gender: Male Area Operations Director: [email or web address] : 1955 Requested By: Order Number: [id number] Reading MD: Sunthosh Parvathaneni Measurements Intervals [place] Rate: 74 P: 33 WA: 140 QRS: 2 QRSD: 96 T: 50 QT: 400 QTc: 444 Interpretive Statements Sinus rhythm with premature supraventricular complexes Incomplete right bundle branch block Borderline ECG Electronically Signed On 02-21-2025 15:55:28 CDT by Sera Loredo Procedure Note Sera Loredo MD - 02/21/[address] [address] Test Date: 2025-02-20 Pat Name: BLACK WAYNE Department: 11 Room: Gender: Male Area Operations Director: [email or web address] : 1955 Requested By: Order Number: [id number] Reading MD: Sera Loredo Measurements Intervals [place] Rate: 74 P: 33 WA: 140 QRS: 2 QRSD: 96 T: 50 QT: 400 QTc: 444 Interpretive Statements Sinus rhythm with premature supraventricular complexes Incomplete right bundle branch block Borderline ECG Electronically Signed On 02-21-2025 15:55:28 CDT by Sera Loredo Joao Gaytan DO ECG ORDERABLES Final Result INTERFACE SYSTEM Refer to clinic/hospital department * (ABNORMAL) HEMOGLOBIN A1C (01/23/2025 10:03 AM CDT) HEMOGLOBIN A1C 6.4(H) <5.7 % [facility] Comment: For someone without known diabetes, a hemoglobin A1c value between 5.7% and 6.4% is consistent with prediabetes and should be confirmed with a follow-up test. For someone with known diabetes, a value <7% indicates that their diabetes is well controlled. A1c targets should be individualized based on duration of diabetes, age, comorbid conditions, and other considerations. This assay result is consistent with an increased risk of diabetes. Currently, no consensus exists regarding use of hemoglobin A1c for diagnosis of diabetes for children. ESTIMATED AVERAGE GLUCOSE (MG/DL) 137 mg/dL [facility] ESTIMATED AVERAGE GLUCOSE (MMOL/L) 7.6 mmol/L [facility] Comment: FASTING:YES FASTING: YES Test Performed at: [facility] [id number] [place] [id number] Rohith Truong MD Blood 01/23/2025 10:0 3 AM CDT 01/23/2025 10:04 AM CDT Jasmine Franco SOCIOLOGY RESEARCH ASSISTANT CHEMISTRY ORDERABLES Final Result [facility] [phone] [facility] [address] [place] [id number] * COLONOSCOPY REPORT (04/30/2024 10:17 AM SHIPPING CLERK PACKING) Narrative Procedure Note Gautam Peralta MD - 04/30/2024 10:17 AM CST [facility] GI Patient Name: Black Wayne Procedure Date: 04/30/2024 Date of : 1955 Admit Type: Outpatient Age: 69 Attending MD: Gautam Peralta MD, Procedure: Colonoscopy Indications: Screening for colorectal malignant neoplasm Providers: Gautam Peralta MD Referring MD: Yelena Berger Medicines: Fentanyl 100 micrograms IV, Midazolam 5 mg IV Complications: No immediate complications. Procedure: Pre-Anesthesia Assessment: - Prior to the procedure, a History and Physical was performed, and patient medications and allergies were reviewed. The patient's tolerance of previous anesthesia was also reviewed. The risks and benefits of the procedure and the sedation options and risks were discussed with the patient. All questions were answered, and informed consent was obtained. Prior Anticoagulants: The patient has taken no anticoagulant or antiplatelet agents. ASA Grade Assessment: II - A patient with mild systemic disease. After reviewing the risks and benefits, the patient was deemed in satisfactory condition to undergo the procedure. After I obtained informed consent, the scope was passed under direct vision. Throughout the procedure, the patient's blood pressure, pulse, and oxygen saturations were monitored continuously. The Colonoscope was introduced through the anus and advanced to the cecum, identified by appendiceal orifice and ileocecal valve. The colonoscopy was performed without difficulty. The patient tolerated the procedure well. The quality of the bowel preparation was good. The ileocecal valve, appendiceal orifice, and rectum were photographed. Estimated Blood Loss: Estimated blood loss was minimal. Findings: A 12 mm polyp was found in the cecum. The polyp was sessile. The polyp was removed with a cold snare. Resection and retrieval were complete. Internal hemorrhoids were found during retroflexion. The hemorrhoids were medium-sized. Moderate Sedation: Moderate (conscious) sedation was administered by the nurse and supervised by the endoscopist. The patient's oxygen saturation, heart rate, blood pressure and response to care were monitored. Total physician intraservice time was 20 minutes. Impression: - One 12 mm polyp in the cecum, removed with a cold snare. Resected and retrieved. - Internal hemorrhoids. Recommendation: - Patient has a contact number available for emergencies. The signs and symptoms of potential delayed complications were discussed with the patient. Return to normal activities tomorrow. Written discharge instructions were provided to the patient. - Resume previous diet. - Continue present medications. - Repeat colonoscopy for surveillance based on pathology results. Gautam Peralta MD 04/30/2024 10:16:55 AM Number of Addenda: 0 Note Initiated On: 04/30/2024 9:56 AM Scope Withdrawal Time Scope In: Scope Out: [address] [place], [place] Gautam Peralta MD GI PROCEDURE ORDERA BLES Final Result * OCCULT BLOOD IMMUNOASSAY, COLORECTAL SCREEN (02/16/2023 12:00 AM CDT) FECAL GLOBIN SEE NOTE [facility] [employer] Comment: FECAL GLOBIN BY IMMUNOCHEMISTRY Micro Number: [id number] Test Status: Final Specimen Source: Stool Specimen Quality: Adequate Fecal Globin: Not Detected Test Performed at: [employer] [address] [place] [address] Rohith Truong MD Stool STOOL SPECIMEN / Unknown 02/16/2023 02/24/2023 10:36 AM CDT Yelena Berger MD BODY FLUIDS AND STOOLS Final Result Performing Organization Address City/State/ZIP Co ca Phone Number [facility] [phone] [facility] [address], [place] [phone] from Last 3 Months or Most Recently Relevant to Health Maintenance Insurance [facility] MEDIC[facility] PART A AND B MEDICARE PART A AND B [facility] Advance Directives For more information, please contact: [phone] Documents on File Type Date Recorded Patient Rockboard Lather Expl anation Advance Directive POA 03/31/2022 2:32 PM Advance Directive POA * Full Code (Latest Code Status on File) Date Activated Date Inactivated Comments 05/24/2024 11:13 AM 05/24/2024 4:57 PM * Full Code Date Activated Date Inactivated Comments 04/30/2024 8:51 AM 04/30/2024 12:46 PM Care Teams Coin Rolling Machine Operator Relationship Specialty Start Date End Date Yelena Berger MD PCP - General Internal Medicine 03/29/22
--- OUTSIDE RECORDS SUMMARY | 2025-04-27 09:52 | XMS_ITS | Encounter Summary ---
Author Organization [facility] Address [address] [place] [address] Care Team Providers Care Strategic Communications Specialist Name Role Phone Yelena Michael MD Primary Care Provider Encounter Details Date Type Department Care Team (Late st Contact Info) Description 01/23/2025 Results Follow-Up [facility] Internal Medicine-[place] [address] [facility] [address] [place] [address] Jasmine Franco, [facility] [address] [facility] [address] [place] [address] URINALYSIS WITH REFLEX CULTURE, HEMOGLOBIN A1C, PSA, URINE CULTURE Social History Tobacco Use Types Packs/Day Years [...] Sex Assigned at Male 04/17/2023 9:26 AM TURKEY EGG GATHERER Legal Sex Male 1:26 PM TURKEY EGG GATHERER Gender Identity Not on file Sexual Orientation Straight 04/17/2023 9: 26 AM TURKEY EGG GATHERER documented as of this encounter Plan of Treatment Upcoming Encounters Date Type Department Care Team (Late st Contact Info) Description 05/17/2025 8:45 AM TURKEY EGG GATHERER Appointment [facility] [address] [place] [address] Jasmine Franco FNP [address] [place] [address] 08/08/2025 11:30 AM CDT Office Visit [facility] [address] [place] [address] Manuel Nieves MD [address] [place] [address] 08/29/2025 10:45 AM CDT Office Visit [facility] Neurology - [place] [address] [place] [address] Diane Ramírez MD [address] [place] [address] 03/06/2026 9:00 AM CDT Office Visit [facility] Internal Medicine-[place] [address] [place] [address] Yelena Michael MD [address] [place] [address] documented as of this encounter Visit Diagnoses Not on filedocumented in this encounter Care Teams Strategic Communications Specialist Relationship Specialty Start Date End Date Yelena Michael MD PCP - General Internal Medicine 03/29/22 documented as of this encounter
--- OUTSIDE RECORDS SUMMARY | 2025-04-27 09:52 | XMS_ITS | Patient Health Record ---
Author Organization [facility] Address [address] [place] [address] Support Name Relationship Address Phone Brooklynn Davis Emergency Contact [address] [place] [phone] Stan Davis Guarantor Unknown Allergies Allergen (clinical drug ingredient) Drug/Non Drug Allergy documented on EMR Reaction Allergy Type Onset Date Status ketorolac Ketorolac anaphylaxis Drug Allergy Activ e Pollen Pollen seasonal Allergy Active Reason For Referral No Information Medications Medication SIG (Take, Route, Frequency, Duration) Notes Start Date End Date Status amLODIPine Besylate 5 MG Tablet 1 tab(s) orally once a day; Duration: 30 day(s) Active Atorvastatin Calcium 40 MG Tablet 1 tab(s) orally once a day; Duration: 30 day(s) Active oxyCODONE-Acetaminoph en 5-325 MG Tablet 0.5-1 tab(s) orally every 6 hours PRN for pain 10/27/2018 Active Lisinopril 10 MG Tablet 1 tab(s) orally once a day; Duration: 30 day(s) Active Ciprofloxacin HCl 500 MG Tablet 1 tab(s) orally every 12 hours; Duration: 14 day(s) 10/27/2018 Active Aspirin *Please review a nd pick correct strength-formulatio n from Medispan options. If intended option is not shown, discontinue and re-order from Quick Search* Active Ciprofloxacin HCl 500 MG Tablet 1 tab(s) orally every 12 hours; Duration: 10 day(s) 10/27/2018 Active Social History Tobacco Use: Social History Observation Description Date Details (start date - stop date) Never Smoker NA - NA Social History General Social Info Question Answer Notes Tobacco Use: Are you a: never smoker Plan Of Treatment No Information Insurance Providers Payer Name Payer Address Payer Phone Subscriber Number Group Number Insured Name Patient Relationship to Insured Coverage Start Date Coverage End Date [employer] ONLY [address] [place] [address] [phone] [id number] Stan Davis Self - patient is the insured
--- OUTSIDE RECORDS SUMMARY | 2025-04-27 09:52 | XMS_ITS | Encounter Summary ---
Author Organization [employer] Address [address] [place] [address] Care Team Providers Care Fishing Guide Name Role Phone Yelena Michael MD Primary [...] worry about transportation for future doctor visits, bulk picker medication, etc.? No 2024 Housing Stability [...] Sex Assigned at Male 04/17/2023 9:26 AM PLY CUTTER Legal Sex Male 1:26 PM PLY CUTTER Gender Identity Not on file Sexual Orientation Straight 04/17/2023 9: 26 AM PLY CUTTER documented as of this encounter Plan of Treatment Upcoming Encounters Date Type Department Care Team (Late st Contact Info) Description 05/17/2025 8:45 AM PLY CUTTER Appointment [facility] [address] [place] [address] Jasmine Franco, PRICE [address] [place] [address] 08/08/2025 11:30 AM CDT Office Visit [facility] Cardiology Heart [facility] [address] [place] [address] Manuel Nieves MD [address] [place] [address] 08/29/2025 10:45 AM CDT Office Visit [facility] Neurology - [place] [address] [place] [address] Diane Ramírez MD [address] [place] [address] 03/06/2026 9:00 AM CDT Office Visit [facility] Internal Medicine-[place] [address] [place] [address] Yelena Michael MD [address] [place] [address] documented as of this encounter Visit Diagnoses Not on filedocumented in this encounter Care Teams Fishing Guide Relationship Specialty Start Date End Date Yelena Michael MD PCP - General Internal Medicine 03/29/22 documented as of this encounter
--- OUTSIDE RECORDS SUMMARY | 2025-04-27 09:52 | XMS_ITS | Encounter Summary ---
Author Organization [facility] Address [address] [place] [address] Care Team Providers Care Stitch Wheeler Name Role Phone Yelena Michael MD Primary [...] worry about transportation for future doctor visits, berry picker medication, etc.? No 2024 Housing Stability [...] Sex Assigned at Male 04/17/2023 9:26 AM RESIDENT CARE ASSISTANT Legal Sex Male 1:26 PM RESIDENT CARE ASSISTANT Gender Identity Not on file Sexual Orientation Straight 04/17/2023 9: 26 AM RESIDENT CARE ASSISTANT documented as of this encounter Plan of Treatment Upcoming Encounters Date Type Department Care Team (Late st Contact Info) Description 05/17/2025 8:45 AM RESIDENT CARE ASSISTANT Appointment [facility] [address] [place] [address] Jasmine Franco, PRICE [address] [place] [address] 08/08/2025 11:30 AM CDT Office Visit [facility] Cardiology Heart [facility] [address] [place] [address] Manuel Nieevs MD [address] [place] [address] 08/29/2025 10:45 AM CDT Office Visit [facility] Neurology - [place] [address] [place] [address] Diane Ramírez MD [address] [place] [address] 03/06/2026 9:00 AM CDT Office Visit [facility] Internal Medicine-[place] [address] [place] [address] Yelena Michael MD [address] [place] [address] documented as of this encounter Visit Diagnoses Not on filedocumented in this encounter Care Teams Stitch Wheeler Relationship Specialty Start Date End Date Yelena Michael MD PCP - General Internal Medicine 03/29/22 documented as of this encounter
--- OUTSIDE RECORDS SUMMARY | 2025-04-27 09:52 | XMS_ITS | Encounter Summary ---
Author Organization [facility] Address [address] [place] [address] Care Team Providers Care Flotation Tender Name Role Phone Yelena Michael MD Primary [...] worry about transportation for future doctor visits, hand picker medication, etc.? No 2024 Housing Stability [...] Sex Assigned at Male 04/17/2023 9:26 AM MAILING MACHINE HELPER Legal Sex Male 1:26 PM MAILING MACHINE HELPER Gender Identity Not on file Sexual Orientation Straight 04/17/2023 9: 26 AM MAILING MACHINE HELPER documented as of this encounter Plan of Treatment Upcoming Encounters Date Type Department Care Team (Late st Contact Info) Description 05/17/2025 8:45 AM MAILING MACHINE HELPER Appointment [facility] [address] [place] [address] Jasmine Franco, PRICE [address] [place] [address] 08/08/2025 11:30 AM CDT Office Visit [facility] Cardiology Heart [facility] [address] [place] [address] Manuel Nieves MD [address] [place] [address] 08/29/2025 10:45 AM CDT Office Visit [facility] Neurology - [place] [address] [place] [address] Diane Ramírez MD [address] [place] [address] 03/06/2026 9:00 AM CDT Office Visit [facility] Internal Medicine-[place] [address] [place] [address] Yelena Michael MD [address] [place] [address] documented as of this encounter Visit Diagnoses Not on filedocumented in this encounter Care Teams Flotation Tender Relationship Specialty Start Date End Date Yelena Michael MD PCP - General Internal Medicine 03/29/22 documented as of this encounter
--- OUTSIDE RECORDS SUMMARY | 2025-04-27 09:52 | XMS_ITS | Encounter Summary ---
Author Organization [facility] Address [address] [place] [address] Care Team Providers Care Theatre Arts Professor Name Role Phone Yelena Michael MD Primary [...] worry about transportation for future doctor visits, apple picker medication, etc.? No 2024 Housing Stability [...] Sex Assigned at Male 04/17/2023 9:26 AM MACHINE CAPTAIN Legal Sex Male 1:26 PM MACHINE CAPTAIN Gender Identity Not on file Sexual Orientation Straight 04/17/2023 9: 26 AM MACHINE CAPTAIN documented as of this encounter Plan of Treatment Upcoming Encounters Date Type Department Care Team (Late st Contact Info) Description 05/17/2025 8:45 AM MACHINE CAPTAIN Appointment [facility] [address] [place] [address] Jasmine Franco, PRICE [address] [place] [address] 08/08/2025 11:30 AM CDT Office Visit [facility] Cardiology Heart [facility] [address] [place] [address] Manuel Nieves MD [address] [place] [address] 08/29/2025 10:45 AM CDT Office Visit [facility] Neurology - [place] [address] [place] [address] Diane Ramírez MD [address] [place] [address] 03/06/2026 9:00 AM CDT Office Visit [facility] Internal Medicine-[place] [address] [place] [address] Yelena Michael MD [address] [place] [address] documented as of this encounter Visit Diagnoses Not on filedocumented in this encounter Care Teams Theatre Arts Professor Relationship Specialty Start Date End Date Yelena Michael MD PCP - General Internal Medicine 03/29/22 documented as of this encounter
--- OUTSIDE RECORDS SUMMARY | 2025-04-27 09:52 | XMS_ITS | Encounter Summary ---
Author Organization [facility] Address [address] [place] [address] Care Team Providers Care Patient Safety Officer Name Role Phone Yelena Michael MD Primary Care Provider Encounter Details Date Type Department Care Team (Late st Contact Info) Description 02/26/2025 External Device Data STL ABSTRACTION Provider, [...] worry about transportation for future doctor visits, cone picker medication, etc.? No 2024 Housing Stability [...] Sex Assigned at Male 04/17/2023 9:26 AM CHILD PROTECTIVE INVESTIGATOR Legal Sex Male 1:26 PM CHILD PROTECTIVE INVESTIGATOR Gender Identity Not on file Sexual Orientation Straight 04/17/2023 9: 26 AM CHILD PROTECTIVE INVESTIGATOR documented as of this encounter Plan of Treatment Upcoming Encounters Date Type Department Care Team (Late st Contact Info) Description 05/17/2025 8:45 AM CHILD PROTECTIVE INVESTIGATOR Appointment [facility] [address] [place] [address] Jasmine Franco, PRICE [address] [place] [address] 08/08/2025 11:30 AM CDT Office Visit [facility] [address] [place] [address] Manuel Nieves MD [address] [place] [address] 08/29/2025 10:45 AM CDT Office Visit [facility] Neurology - [place] [address] [place] [address] Diane Ramírez MD [address] [place] [address] 03/06/2026 9:00 AM CDT Office Visit [facility] Internal Medicine-[place] [address] [place] [address] Yelena Michael MD [address] [place] [address] documented as of this encounter Visit Diagnoses Not on filedocumented in this encounter Care Teams Patient Safety Officer Relationship Specialty Start Date End Date Yelena Michael MD PCP - General Internal Medicine 03/29/22 documented as of this encounter
== END 2025-04-26 23:59 | disposition home or self-care (01) ==
LOC: LAB.DROPOF 04-27 09:49
PROVIDERS: Visit Provider Student in an Organized Health Care Education/Training Program
DX: R50.9 Fever, unspecified (principal)
CPT/HCPCS: 87636